=== PATIENT | female | born 1985 | race Caucasian/White ===

== ENCOUNTER 2017-08-18 14:00 | Emergency (ER) | payer SELFPAY ==
--- NOTE | 2017-08-18 14:35 | ED Physician Chart ---
ED Chief Complaint/HPI - Patient Information Date Seen:: 08/18/17 Time Seen:: 14:20 Chief Complaint:: cough, fever, vomiting History of Present Illness:: Patient developed cough, subjective fever and vomiting 5 days ago. No diarrhea. Daughter is similarly affected. Patient did not receive any influenza vaccination this season. Allergies:: Allergies Allergy/AdvReac Type Severity Reaction Status Date / Time No Known Allergies Allergy Verified 08/18/17 14:24 Vitals:: Vital Signs - 8 hr 08/18/17 14:24 HR 99 BP 122/74 O2 Sat % 97 Historian:: Patient Review:: Nurse's Note Reviewed ED Review of Systems - Review of Systems General/Constitutional: Fever Skin: No skin lesions Head: No headache Eyes: No loss of vision ENT: No earache Neck: No neck pain Cardio Vascular: No chest pain Pulmonary: Cough GI: Nausea, Vomiting, No diarrhea G/U: No dysuria Musculoskeletal: Muscle pain, Other (mild myalgia) Endocrine: No polyuria, No polydipsia Psychiatric: No prior psych history Hematopoietic: No bruising Allergic/Immuno: No urticaria Neurological: No syncope, No focal symptoms ED Past Medical History - Past Medical History Past Medical History: Dyslipidemia, Thyroid disorder, Other (hyperlipidemia; hypothyroidism) Family History: Diabetes Melitus, HTN, Other (hyperlipidemia) Social History: Non Smoker, No Alcohol Surgical History: other (left eyebrow cyst and pilonidal cyst) Psychiatricy History: None Medication: None Family Medical History - Family Member Mother History Unknown: Yes ED Physical Exam - Physical Examination General/Constitutional: Well-developed, well-nourished, Alert, No distress Head: Atraumatic Eyes: Lids, conjuctiva normal, PERRL Skin: Nl inspection, No rash, No skin lesions, No ecchymosis ENMT: External ears, nose nl, TM canals nl, Nasal exam nl, Lips, teeth, gums nl , Oropharynx nl, Tonsils nl Neck: No nuchal rigidity Respiratory: Nl effort/Exclusion, Clear to Auscultation, No Wheeze/Rhonchi/Rales Cardio Vascular: RRR, No murmur, gallop, rubs GI: No tenderness/rebounding/guarding, No organomegaly, No hernia, Normal BS's Extremities: Normal digits & nails Neuro/Psych: No focal deficits Misc: No paraspinal tenderness ED Labs/Radiology/EKG Results - Lab Results Results: Laboratory Results - last 24 hr 08/18/17 15:05 Influenza A (Rapid) NEG FOR INF A Influenza B (Rapid) POS FOR INF B H ED Septic Shock - . Is Septic Shock (SBP<90, OR Lactate>4 mmol\L) present?: No - <6hrs of presentation: Vital Signs: Vital Signs - 8 hr 08/18/17 14:24 HR 99 BP 122/74 O2 Sat % 97 ED Reassessment (Disposition) - Reassessment Reassessment Condition:: Unchanged - Diagnosis Diagnosis:: Influenza B - Aftercare/Follow up Instructions Aftercare/Follow-Up Instructions:: Refer to Discharge Instructions - Patient Disposition Discharge/Transfer:: Home Condition at Disposition:: Stable, Unchanged
[2017-08-18 16:45] LABS: INF A SCREEN NEG FOR INF A; INF B SCREEN POS FOR INF B
== END 2017-08-18 17:45 ==
LOC: ER 14:00
DX: J11.1 Influenza due to unidentified influenza virus with other respiratory manifestations (principal); E78.5 Hyperlipidemia, unspecified; E03.9 Hypothyroidism, unspecified
CPT/HCPCS: 87804-TC; Z7502

== ENCOUNTER 2017-08-24 16:33 | Inpatient (IN) | payer SELFPAY ==
--- NOTE | 2017-08-24 17:18 | ED Physician Chart ---
ED Chief Complaint/HPI - Patient Information Date Seen:: 08/24/17 Time Seen:: 16:50 Chief Complaint:: Fever History of Present Illness:: onset x 2 days of cough, congestion, pleuritic right rib/chest pains, and fever ; pt denies trauma, H/As, E/As, S/T, neck pain, exertional C/P, SOB, Abd. 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 Allergies:: Allergies Allergy/AdvReac Type Severity Reaction Status Date / Time No Known Allergies Allergy Verified 08/18/17 14:24 Vitals:: Vital Signs - 8 hr 08/24/17 16:52 Temp 99.7 F HR 127 RR 16 BP 150/93 O2 Sat % 95 Historian:: Patient Review:: Nurse's Note Reviewed <Kevin Watson - Last Filed: 08/24/17 17:33> - Patient Information Allergies:: Allergies Allergy/AdvReac Type Severity Reaction Status Date / Time No Known Allergies Allergy Verified 08/18/17 14:24 Vitals:: Vital Signs - 8 hr 08/24/17 16:52 Temp 99.7 F HR 127 RR 16 BP 150/93 O2 Sat % 95 <Serina Adams - Last Filed: 08/24/17 23:41> ED Review of Systems - Review of Systems General/Constitutional: Fever, No chills, No weight loss, No weakness, No diaphoresis, No edema, No loss of appetite Skin: No skin lesions, No rash, No bruising Head: No headache, No light-headedness Eyes: No loss of vision, No pain, No diplopia ENT: No earache, Nasal drainage, No sore throat, No tinnitus Neck: No neck pain, No swelling, No thyromegaly, No stiffness, No mass noted Cardio Vascular: No chest pain, No palpitations, No PND, No orthopnea, No edema Pulmonary: No SOB, Cough, No sputum, No wheezing GI: No nausea, No vomiting, No diarrhea, No pain, No melena, No hematochezia, No constipation, No hematemesis G/U: No dysuria, No frequency, No hematuria, No nacturia Pricing Coordinator: No vaginal discharge, No abnormal vaginal bleed, No contraction Musculoskeletal: No bone or joint pain, No back pain, No muscle pain Endocrine: No polyuria, No polydipsia Psychiatric: No prior psych history, No depression, No anxiety, No suicidal ideation, No homicidal ideation, No auditory hallucination, No visual hallucination Hematopoietic: No bruising, No lymphadenopathy Allergic/Immuno: No urticaria, No angioedema Neurological: No syncope, No focal symptoms, No weakness, No paresthesia, No headache, No seizure, No dizziness, No confusion, No vertigo <Kevin Watson - Last Filed: 08/24/17 17:33> ED Past Medical History - Past Medical History Obtainable: Yes Past Medical History: Thyroid disorder Family History: Diabetes Melitus, HTN Social History: Non Smoker, Alcohol, No Drug Use, Single Surgical History: None Psychiatricy History: None Medication: Reviewed <Kevin Watson Bunny Filed: 08/24/17 17:33> Family Medical History - Family Member Mother History Unknown: Yes <Kevin Watson Filed: 08/24/17 17:33> ED Physical Exam - Physical Examination General/Constitutional: Awake, Well-developed, well-nourished, Alert, No distress, GCS 15, Non-toxic appearing, Ambulatory Head: Atraumatic Eyes: Lids, conjuctiva normal, PERRL, EOMI Skin: Nl inspection, No rash, No skin lesions, No ecchymosis, Well hydrated, No lymphadenopathy ENMT: External ears, nose nl, TM canals nl, Nasal exam nl, Lips, teeth, gums nl , Oropharynx nl, Tonsils nl Neck: Nontender, Full ROM w/o pain, No JVD, No nuchal rigidity, No bruit, No mass, No stridor Respiratory: Nl effort/Exclusion, Clear to Auscultation, No Wheeze/Rhonchi/Rales Cardio Vascular: RRR, No murmur, gallop, rubs, NL S1 S2, Carotid/Femoral/Distal pulses equal bilaterally GI: No tenderness/rebounding/guarding, No organomegaly, No hernia, Normal BS's, Nondistended, No mass/bruits, No McBurney tenderness : No CVA tenderness Extremities: No tenderness or effusion, Full ROM, normal strength in all extremities, No edema, Normal digits & nails Neuro/Psych: Alert/oriented, DTR's symmetric, Normal sensory exam, Normal motor strength, Judgement/insight normal, Mood normal, Normal gait, No focal deficits Misc: Normal back, No paraspinal tenderness <Kevin Watson - Last Filed: 08/24/17 17:33> - Physical Examination Other GI comments:: RUQ tenderness <Serina Adams - Last Filed: 08/24/17 23:41> ED Labs/Radiology/EKG Results - EKG Interpretations EKG Time:: 17:28 Rate & Rhythm: 126; ST Comments:: non-specific st-t changes <[email or web address] - Last Filed: 08/24/17 17:33> - Lab Results Results: Laboratory Tests 08/24/17 08/24/17 08/24/17 17:25 17:34 17:34 WBC 22.7 H* RBC 4.33 Hgb 13.7 Hct 39.9 L MCV 92.2 MCH 31.6 H MCHC Differential 34.3 RDW 12.7 Plt Count 262 MPV 8.4 Band Neutrophils % 6 Neutrophils (Manual) 83 H Lymphocytes 6 L Monocytes 4 Eosinophils 1 Platelet Estimate ADEQUATE Platelet Morphology NORMAL RBC Morph Micro Appear NORMAL PT 9.7 INR 0.93 PTT (Actin FS) 25.9 L Sodium Potassium Chloride Carbon Dioxide Anion Gap BUN Creatinine Est GFR ( Amer) Est GFR (Non-Af Amer) BUN/Creatinine Ratio Glucose Whole Bld Lactic Acid Calcium Total Bilirubin AST ALT Alkaline Phosphatase Creatine Kinase Troponin I Total Protein Albumin Globulin Albumin/Globulin Ratio Amylase Lipase Serum , Qual Urine Source Urine Color Urine Clarity Urine pH Ur Specific [place] Urine Protein Urine Glucose (UA) Urine Ketones Urine Blood Urine Nitrate Urine Bilirubin Urine Urobilinogen Ur Leukocyte Esterase Urine RBC Urine WBC Ur Epithelial Cells Urine Bacteria Urine Test POC Ur Test Negative 08/24/17 08/24/17 08/24/17 17:34 17:34 17:34 WBC RBC Hgb Hct MCV MCH MCHC Differential RDW Plt Count MPV Band Neutrophils % Neutrophils (Manual) Lymphocytes Monocytes Eosinophils Platelet Estimate Platelet Morphology RBC Morph Micro Appear PT INR PTT (Actin FS) Sodium 132 L Potassium 3.4 L Chloride 101 Carbon Dioxide 23.0 Anion Gap 11.4 BUN 6 L Creatinine 0.8 Est GFR ( Amer) > 60.0 Est GFR (Non-Af Amer) > 60.0 BUN/Creatinine Ratio 7.5 Glucose 239 H Whole Bld Lactic Acid 1.24 Calcium 8.8 Total Bilirubin 0.5 AST 42 H ALT 44 Alkaline Phosphatase 134 H Creatine Kinase 52 Troponin I 0.01 Total Protein 7.7 Albumin 3.6 L Globulin 4.1 Albumin/Globulin Ratio 0.9 L Amylase Lipase Serum , Qual Urine Source Urine Color Urine Clarity Urine pH Ur Specific [place] Urine Protein Urine Glucose (UA) Urine Ketones Urine Blood Urine Nitrate Urine Bilirubin Urine Urobilinogen Ur Leukocyte Esterase Urine RBC Urine WBC Ur Epithelial Cells Urine Bacteria Urine Test NEGATIVE POC Ur Test 08/24/17 08/24/17 08/24/17 17:34 17:34 17:55 WBC RBC Hgb Hct MCV MCH MCHC Differential RDW Plt Count MPV Band Neutrophils % Neutrophils (Manual) Lymphocytes Monocytes Eosinophils Platelet Estimate Platelet Morphology RBC Morph Micro Appear PT INR PTT (Actin FS) Sodium Potassium Chloride Carbon Dioxide Anion Gap BUN Creatinine Est GFR ( Amer) Est GFR (Non-Af Amer) BUN/Creatinine Ratio Glucose Whole Bld Lactic Acid Calcium Total Bilirubin AST ALT Alkaline Phosphatase Creatine Kinase Troponin I Total Protein Albumin Globulin Albumin/Globulin Ratio Amylase 13 L Lipase 12 Serum , Qual NEGATIVE Urine Source [place] Urine Color YELLOW Urine Clarity CLEAR Urine pH 7.5 Ur Specific [place] 1.015 Urine Protein NEGATIVE Urine Glucose (UA) >=1000 H Urine Ketones NEGATIVE Urine Blood TRACE Urine Nitrate NEGATIVE Urine Bilirubin NEGATIVE Urine Urobilinogen 4.0 H Ur Leukocyte Esterase NEGATIVE Urine RBC 0-2 Urine WBC NONE SEEN Ur Epithelial Cells NONE SEEN Urine Bacteria NONE SEEN Urine Test POC Ur Test - Radiology Results Results: CT chest: right middle lobe pneumonia Abdominal u/s: Hepatomegaly <Serina Adams - Last Filed: 08/24/17 23:41> ED Assessment - Assessment General Assessment: Right middle lobe pneumonia Leukocytosis Hepatomegaly <Serina Adams - Last Filed: 08/24/17 23:41> ED Septic Shock - . Is Septic Shock (SBP<90, OR Lactate>4 mmol\L) present?: No - <6hrs of presentation: Vital Signs: Vital Signs - 8 hr 08/24/17 16:52 Temp 99.7 F HR 127 RR 16 BP 150/93 O2 Sat % 95 <Kevin Watson - Last Filed: 08/24/17 17:33> - . Is Septic Shock (SBP<90, OR Lactate>4 mmol\L) present?: No - <6hrs of presentation: Vital Signs: Vital Signs - 8 hr 08/24/17 16:52 Temp 99.7 F HR 127 RR 16 BP 150/93 O2 Sat % 95 <Serina Adams - Last Filed: 08/24/17 23:41> ED Reassessment (Disposition) - Reassessment Reassessment Condition:: Improved - Patient Disposition Discharge/Transfer:: Acute Care w/in this hosp Admitting Medical Physician:: Cesar Guerra <Serina Adams - Last Filed: 08/24/17 23:41>
[2017-08-24] MEDS ORDERED: Sodium Chloride 0.9% 1,000 ML IV ONE (17:20)
[2017-08-24] MEDS ORDERED: cefTRIAXone 1 GM in Sodium Chloride 0.9% 50 ML IV ONE (17:21)
[2017-08-24 17:57] LABS: EOSINOPHILE ABSOLUTE 0.1 Th/cmm (0.1-0.4); HEMATOCRIT 39.9 % (41.0-60); HEMOGLOBIN 13.7 gm/dL (12-16); LYMPHOCYTE ABSOLUTE 1.4 Th/cmm (1.5-3.0); MANUAL DIFF REQUIRED? YES; MEAN CELL VOLUME 92.2 fl (81-100); MEAN CORPUSCULAR HEMOGLOBIN 31.6 pg (27.0-31.0); MEAN CORPUSCULAR HGB CONC 34.3 pg (28.0-36.0); MEAN PLATELET VOLUME 8.4 fl; MONOCYTE ABSOLUTE 1.1 Th/cmm (0.3-1.0); NEUTROPHILE ABSOLUTE 20.1 Th/cmm (1.8-8.0); PLATELET COUNT 262 Th/cmm (150-400); RED BLOOD COUNT 4.33 Mil/cmm (3.80-5.10); RED CELL DISTRIBUTION WIDTH 12.7 % (11.5-20.0)
[2017-08-24 18:00] LABS: URINE MICROSCOPIC INDICATED? YES; URINE SOURCE MIDSTREAM
[2017-08-24 18:02] LABS: URINE BILIRUBIN NEGATIVE (NEGATIVE); URINE BLOOD TRACE (NEGATIVE); URINE GLUCOSE (UA) >=1000 mg/dL (NEGATIVE); URINE KETONE NEGATIVE (NEGATIVE); URINE LEUKOCYTE ESTERASE NEGATIVE (NEGATIVE); URINE NITRATE NEGATIVE (NEGATIVE); URINE PH 7.5 (4.6 - 8.0); URINE PROTEIN NEGATIVE (NEGATIVE)
[2017-08-24 18:07] LABS: INR 0.93 (0.5-1.4); PROTHROMBIN TIME (TEST) 9.7 SECONDS (9.5-11.5)
[2017-08-24 18:13] LABS: TROP I 0.01 ng/mL (0.01-0.05)
[2017-08-24 18:21] LABS: WHITE BLOOD COUNT 22.7 Th/cmm (4.8-10.8)
[2017-08-24] MEDS ORDERED: Morphine Sulfate 2 mg/mL 1mL Syr IV STA (18:23)
[2017-08-24] MEDS ORDERED: Azithromycin 500 MG in Sodium Chloride 0.9% 250 ML IV ONE (18:25)
[2017-08-24 18:29] LABS: URINE BACTERIA NONE SEEN /hpf (NONE SEEN); URINE CLARITY CLEAR (CLEAR); URINE COLOR YELLOW; URINE EPITHELIAL CELLS NONE SEEN /lpf (FEW); URINE RBC 0-2 /hpf (0-5); URINE WBC NONE SEEN /hpf (0-5)
[2017-08-24 18:30] LABS: ALB/GLOB RATIO 0.9 (1.0-1.8); ALBUMIN 3.6 gm/dL (3.7-5.3); ALKALINE PHOSPHATASE 134 U/L (34-104); ANION GAP 11.4 (7.0-16.0); BILIRUBIN,TOTAL 0.5 mg/dL (0.3-1.0); BUN - UREA NITROGEN 6 mg/dL (7-25); CALCIUM SERUM 8.8 mg/dL (8.6-10.3); CHLORIDE 101 mEq/L (98-107); CREATININE - SERUM 0.8 mg/dL (0.6-1.2); CREATININE KINASE 52 U/L (30-223); GFR AFRICAN-AMERICAN > 60.0 ml/min (>90); GFR NON AFRICAN-AMERICAN > 60.0 ml/min; GLUCOSE 239 mg/dL (70-105); POTASSIUM SERUM 3.4 mEq/L (3.5-5.1); SGOT 42 U/L (13-39); SGPT/ALT 44 U/L (7-52); SODIUM SERUM 132 mEq/L (136-145); TOTAL PROTEIN,SERUM 7.7 gm/dL (6.0-8.3)
[2017-08-24] MEDS ORDERED: Morphine Sulfate 2 mg/mL 1mL Syr ONE (18:32)
[2017-08-24 19:36] LABS: BAND NEUTROPHILE 6 % (0-10); EOSINOPHIL 1 % (0-5); LYMPHOCYTE 6 % (20-50); MONOCYTE 4 % (2-10); TOTAL CELLS COUNTED 100
[2017-08-24 19:37] LABS: NEUTROPHILS 83 % (40-80); PLATELET ESTIMATE ADEQUATE (NORMAL); PLATELET MORPHOLOGY NORMAL (NORMAL)
[2017-08-24 21:22] LABS: AMYLASE SERUM 13 U/L (29-103); LIPASE 12 U/L (11-82)
[2017-08-24] MEDS ORDERED: Potassium Chloride 20 mEq ER Tab PO ONE ×2 (23:38→23:39)
[2017-08-25] MEDS ORDERED: Albuterol/Ipratropium Neb 3 ML AERS HHN PRN (00:20)
[2017-08-25] MEDS: Sodium Chloride 0.9% 1,000 ML IV SCH ×2 (00:52→10:32)
[2017-08-25 01:29] VITALS: BP 119/71
--- NOTE | 2017-08-25 09:02 | Diagnostic Imaging Report ---
CHEST X-RAY: AP view INDICATION: Chest pain COMPARISON: None FINDINGS: Faint right basal densities noted. No evidence of an effusion. Heart size normal. Degenerative changes of the spine are noted. IMPRESSION: Faint right basal density which represent faint infiltrate. Please refer to follow-up CT chest for further details.
--- NOTE | 2017-08-25 09:08 | Diagnostic Imaging Report ---
Ultrasound abdomen HISTORY: Right upper quadrant pain COMPARISON: CT chest performed the same day Technique: Sonography of the abdomen was performed in multiple planes. FINDINGS: Exam is markedly limited due to body habitus and bowel gas. The liver demonstrates increased echogenicity. The liver margins are not well-defined limiting assessment for focal lesions. The liver measures 19.6 cm. Limited assessment of the gallstones demonstrates no obvious gallstones or gallbladder wall thickening. The common bile duct measures 3 mm. Assessment of pancreas is limited due to bowel gas. The pancreas appears mildly heterogeneous. Limited assessment of the kidneys demonstrates no obvious hydronephrosis. Assessment for focal renal lesions is limited on this exam. The spleen measures 11.1 cm. IMPRESSION: Limited exam due to body habitus and bowel gas. No evidence of gallstones. Prominent liver with increased echogenicity likely due to fatty infiltration Suboptimal assessment of the pancreas. The Pancreas appears mildly heterogeneous. Inflammatory process cannot be excluded. Note, the pancreas is partially visualized on recent chest CT exam and appears grossly unremarkable. If indicated short-term follow-up CT abdomen and pelvis examination may be obtained.
--- NOTE | 2017-08-25 09:13 | Diagnostic Imaging Report ---
CT Chest without IV contrast HISTORY: Right chest pain COMPARISON: Chest x-ray on 08/24/2018. Technique: Axial images were obtained from the base of the neck to the upper abdomen without IV contrast. Reconstructions were made. Total DLP 321 CTD I 10.5 Findings: Assessment of mediastinum is limited due to lack of IV contrast. A few nonenlarged mediastinal lymph nodes are noted. No evidence of an aortic aneurysm. No pericardial effusion. The heart size is normal. There is elevation of the right hemidiaphragm. Atelectatic lung changes and atelectatic changes seen with patchy infiltrates primarily on the right side and right anterior/basal consolidative changes along the middle lobe with air bronchograms. A few nodular infiltrates are seen measuring up to 8 mm. Trace right sided pleural fluid is noted. The upper abdomen demonstrates prominent fatty liver. The osseous structures demonstrate no acute abnormalities. Degenerative changes of the spine are noted. IMPRESSION: Bilateral infiltrates primarily on the right side with consolidative changes involving the right lung base along the right middle lobe/right heart border with air bronchograms. Findings are most suggestive pneumonia. Clinical correlation and follow-up is recommended. Trace bilateral effusions Few nodular infiltrates the right lung measuring up to 8 mm. Findings are nonspecific and may be due to infectious or inflammatory process. Neoplastic process is less likely. Short-term follow-up CT examination after resolution of acute symptoms is recommended to ensure resolution. Prominent liver with fatty infiltration.
[2017-08-25] MEDS ORDERED: Influenza Vaccine 0.5 mL Syr IM ONE (10:00)
[2017-08-25] MEDS: guaiFENesin 200 MG/10 ML UDC PO SCH ×3 (10:29→21:19)
--- NOTE | 2017-08-25 12:14 | History & Physical ---
ADMIT DATE: 08/25/2017 REASON FOR ADMISSION: Right lower lobe and middle lobe pneumonia. HISTORY OF PRESENTING ILLNESS: A 32-year-old female had fluid type of symptom 1 week ago and past 2-3 days she is having pleuritic chest pain in the right mid chest area underneath the nipple area and also started having fever with chills and not feeling well, got short of breath, severe pleuritic pain with each time she coughs, very little phlegm coming out at present time came to the Emergency Room. Chest x-ray was equivocal, so CT chest done which revealed right middle lobe and right lower lobe lobar pneumonia with WBC count more than 22,000 with left shift. The patient got admitted since admission, the symptomatology of pleuritic chest pain still persist. Remained afebrile, no sweating at present time, cough is still there and pleurisy type of pain with each cough is present in the right mid chest area. The patient denies vomiting, appetite is poor. No abdominal pain, no UTI symptomatology. No leg swelling or joint swelling. No numbness, weakness. PAST MEDICAL HISTORY: None. MEDICATIONS AT HOME: None. [id number] MEDICATIONS: NyQuil. ALLERGIES: None. SOCIAL HISTORY: No smoking, alcohol, or substance abuse. FAMILY HISTORY: Noncontributory. REVIEW OF SYSTEMS: See the history of presenting illness. Denies any sore throat or vision problem, still having nose congestion. PHYSICAL EXAMINATION: VITAL SIGNS: Height is 1.52 meter, weight is 79 kg, BMI 34.2, temperature 98.1, pulse 95. Respiratory rate 17, blood pressure 124/85, oxygen saturation 2 liters nasal cannula, 95%. HEENT: Nose congested. NECK: Short and thick. LUNGS: Clear but decreased air entry in the right base. No rales, rhonchi. CARDIOVASCULAR: S1, S2 normal limit. ABDOMEN: Obese, otherwise benign. EXTREMITIES: No leg edema. Dorsalis pedis palpable. LABORATORY TESTS: WBC is 22.7, hemoglobin 13.7, MCV 92, and platelet count of 262,000, neutrophil 83. Protime 9.7, PTT 25. Sodium 132, potassium 3.4, chloride 101, bicarbonate 23, BUN 6, creatinine 0.8, glucose of 239, calcium 8.8. SGOT 42, SGPT 44, alkaline phosphatase 134, CPK 52. Troponin negative. Albumin 3.6, amylase 13 and lipase 12. Serum negative. Urinalysis, pH 7.5, specific gravity 1015, glucose, 4+ ketones negative, wbc's none. Chest x-rays significant for right base haziness. CT chest reveal lobar pneumonia, right, middle and right lower lobe. Ultrasound abdomen, fatty liver. No gallstone. ASSESSMENT AND PLAN: 1. Right middle and lower lobe pneumonia. 2. Status post viral upper respiratory tract infection. 3. Rhinitis. 4. 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 5. Local psychosis severe with left shift due to right middle and lower lobe pneumonia. 6. Hyperglycemia with hypercalcemia. In this regard that the patient having urine glucose 4+, this is to rule out diabetes mellitus. We will check a hemoglobin A1c. 7. Hypokalemia. We will the do the potassium supplement and go from there. The patient will be empirically given IV Rocephin and Zithromax. CBC will be followed. BMP also followed with hemoglobin A1c, TSH will be done. 8. Fatty liver. Advised the patient to eat low fat diet and follow up with primary care physician and monitor the liver panel and glucose grossly. Pleuritic chest pain will be controlled with [place] and Robitussin expectorant and handheld nebulizer & Tylenol p.r.n. for fever. JOB# [id number] PADMINI
[2017-08-25 13:35] LABS: A1C % 9.4 % (4.0-6.0)
[2017-08-25] MEDS: Potassium Chloride 10 mEq ER Tab PO SCH (15:15)
[2017-08-25] MEDS: Hydrocodone/APAP 5mg/325mg Tab PO PRN (15:20)
[2017-08-25] MEDS: cefTRIAXone 1 GM in Sodium Chloride 0.9% 50 ML IV SCH (21:13)
[2017-08-25] MEDS: Azithromycin 500 MG in Sodium Chloride 0.9% 250 ML IV SCH (22:58)
[2017-08-26] MEDS: Sodium Chloride 0.9% 1,000 ML IV SCH ×2 (04:48→16:21)
[2017-08-26 05:27] LABS: % BASOPHILS 0.5 % (0.0-2.0); % EOSINOPHILS 1.9 % (0.0-5.0); % LYMPHOCYTES 15.8 % (20.0-50.0); % MONOCYTES 7.8 % (2.0-10.0); BASOPHILE ABSOLUTE 0.1 Th/cumm (0-0.2); EOSINOPHILE ABSOLUTE 0.2 Th/cmm (0.1-0.4); HEMOGLOBIN 12.7 gm/dL (12-16); LYMPHOCYTE ABSOLUTE 2.1 Th/cmm (1.5-3.0); MEAN CORPUSCULAR HEMOGLOBIN 31.2 pg (27.0-31.0); MEAN CORPUSCULAR HGB CONC 33.6 pg (28.0-36.0); MEAN PLATELET VOLUME 8.5 fl; NEUTROPHILE ABSOLUTE 9.7 Th/cmm (1.8-8.0); RED BLOOD COUNT 4.08 Mil/cmm (3.80-5.10); RED CELL DISTRIBUTION WIDTH 12.8 % (11.5-20.0)
[2017-08-26 05:31] LABS: PLATELET COUNT 329 Th/cmm (150-400); WHITE BLOOD COUNT 13.1 Th/cmm (4.8-10.8)
[2017-08-26 06:27] LABS: ALB/GLOB RATIO 0.8 (1.0-1.8); ALBUMIN 3.2 gm/dL (3.7-5.3); ALKALINE PHOSPHATASE 115 U/L (34-104); ANION GAP 10.5 (7.0-16.0); BILIRUBIN,TOTAL 0.3 mg/dL (0.3-1.0); BUN - UREA NITROGEN 6 mg/dL (7-25); CALCIUM SERUM 8.5 mg/dL (8.6-10.3); CARBON DIOXIDE 24.2 mEq/L (21.0-31.0); CHLORIDE 102 mEq/L (98-107); CHOLESTEROL 112 mg/dL (<200); CREATININE - SERUM 0.5 mg/dL (0.6-1.2); GFR AFRICAN-AMERICAN > 60.0 ml/min (>90); GFR NON AFRICAN-AMERICAN > 60.0 ml/min; GLUCOSE 208 mg/dL (70-105); HDL -HIGH DENSITY LIPOPROTEIN 25 mg/dL (23-92); POTASSIUM SERUM 3.7 mEq/L (3.5-5.1); SGOT 16 U/L (13-39); SGPT/ALT 34 U/L (7-52); SODIUM SERUM 133 mEq/L (136-145); TOTAL PROTEIN,SERUM 7.3 gm/dL (6.0-8.3); TRIGLYCERIDES 181 mg/dL (<150)
--- NOTE | 2017-08-26 08:00 | Diagnostic Imaging Report ---
CHEST X-RAY: AP view INDICATION: Pneumonia COMPARISON: 08/24/2017 FINDINGS: Suboptimal lung volumes are seen with right basal infiltrates and small right effusion. Minimal congestive changes are noted. Heart size is borderline prominent. IMPRESSION: Minimal congestive changes with small right effusion and right basal infiltrates.
[2017-08-26] MEDS: guaiFENesin 200 MG/10 ML UDC PO SCH ×3 (09:11→20:59)
[2017-08-26] MEDS: Potassium Chloride 10 mEq ER Tab PO SCH (09:12)
[2017-08-26 11:26] LABS: ALLEN TEST YES; pH 7.42 (7.35-7.45)
[2017-08-26] MEDS: INSULIN ASPART, RECOMBINANT 100 UNITS/ML SUBQ SCH (17:18)
[2017-08-26] MEDS: cefTRIAXone 1 GM in Sodium Chloride 0.9% 50 ML IV SCH (20:54)
[2017-08-26] MEDS: Azithromycin 500 MG in Sodium Chloride 0.9% 250 ML IV SCH (21:36)
[2017-08-27 05:18] LABS: % BASOPHILS 0.8 % (0.0-2.0); % EOSINOPHILS 2.6 % (0.0-5.0); % LYMPHOCYTES 15.6 % (20.0-50.0); % MONOCYTES 7.5 % (2.0-10.0); % NEUTROPHILS 73.5 % (40.0-80.0); BASOPHILE ABSOLUTE 0.1 Th/cumm (0-0.2); EOSINOPHILE ABSOLUTE 0.3 Th/cmm (0.1-0.4); HEMATOCRIT 40.1 % (41.0-60); HEMOGLOBIN 13.5 gm/dL (12-16); LYMPHOCYTE ABSOLUTE 1.9 Th/cmm (1.5-3.0); MEAN CELL VOLUME 92.7 fl (81-100); MEAN CORPUSCULAR HEMOGLOBIN 31.3 pg (27.0-31.0); MEAN CORPUSCULAR HGB CONC 33.7 pg (28.0-36.0); MEAN PLATELET VOLUME 8.2 fl; MONOCYTE ABSOLUTE 0.9 Th/cmm (0.3-1.0); NEUTROPHILE ABSOLUTE 9.1 Th/cmm (1.8-8.0); PLATELET COUNT 383 Th/cmm (150-400); RED BLOOD COUNT 4.32 Mil/cmm (3.80-5.10); RED CELL DISTRIBUTION WIDTH 12.7 % (11.5-20.0)
[2017-08-27 05:20] LABS: WHITE BLOOD COUNT 12.3 Th/cmm (4.8-10.8)
[2017-08-27 05:37] LABS: ALB/GLOB RATIO 0.8 (1.0-1.8); ALBUMIN 3.3 gm/dL (3.7-5.3); ALKALINE PHOSPHATASE 118 U/L (34-104); ANION GAP 11.7 (7.0-16.0); BILIRUBIN,TOTAL 0.4 mg/dL (0.3-1.0); BUN - UREA NITROGEN 5 mg/dL (7-25); CALCIUM SERUM 8.9 mg/dL (8.6-10.3); CARBON DIOXIDE 23.7 mEq/L (21.0-31.0); CHLORIDE 102 mEq/L (98-107); CREATININE - SERUM 0.6 mg/dL (0.6-1.2); GFR AFRICAN-AMERICAN > 60.0 ml/min (>90); GFR NON AFRICAN-AMERICAN > 60.0 ml/min; GLUCOSE 172 mg/dL (70-105); POTASSIUM SERUM 3.4 mEq/L (3.5-5.1); SGOT 19 U/L (13-39); SGPT/ALT 29 U/L (7-52); SODIUM SERUM 134 mEq/L (136-145); TOTAL PROTEIN,SERUM 7.7 gm/dL (6.0-8.3)
[2017-08-27] MEDS: INSULIN ASPART, RECOMBINANT 100 UNITS/ML SUBQ SCH ×3 (06:39→17:46)
[2017-08-27] MEDS: guaiFENesin 200 MG/10 ML UDC PO SCH ×3 (08:40→21:15)
[2017-08-27] MEDS: Potassium Chloride 10 mEq ER Tab PO SCH ×2 (08:41→17:59)
[2017-08-27] MEDS ORDERED: ACYCLOVIR 5% TP SCH (13:00)
[2017-08-27] MEDS: Hydrocodone/APAP 5mg/325mg Tab PO PRN (18:00)
[2017-08-27] MEDS: cefTRIAXone 1 GM in Sodium Chloride 0.9% 50 ML IV SCH (21:10)
[2017-08-27] MEDS: Azithromycin 500 MG in Sodium Chloride 0.9% 250 ML IV SCH (22:16)
[2017-08-27] MEDS: Sodium Chloride 0.9% 1,000 ML IV SCH (23:34)
[2017-08-28] MEDS: Hydrocodone/APAP 5mg/325mg Tab PO PRN (06:06)
[2017-08-28 06:10] LABS: % BASOPHILS 0.5 % (0.0-2.0); % EOSINOPHILS 3.2 % (0.0-5.0); % LYMPHOCYTES 20.3 % (20.0-50.0); % MONOCYTES 9.4 % (2.0-10.0); % NEUTROPHILS 66.6 % (40.0-80.0); EOSINOPHILE ABSOLUTE 0.3 Th/cmm (0.1-0.4); HEMATOCRIT 39.5 % (41.0-60); HEMOGLOBIN 13.2 gm/dL (12-16); LYMPHOCYTE ABSOLUTE 1.9 Th/cmm (1.5-3.0); MEAN CELL VOLUME 92.8 fl (81-100); MEAN CORPUSCULAR HGB CONC 33.4 pg (28.0-36.0); MONOCYTE ABSOLUTE 0.9 Th/cmm (0.3-1.0); NEUTROPHILE ABSOLUTE 6.4 Th/cmm (1.8-8.0); PLATELET COUNT 432 Th/cmm (150-400); RED BLOOD COUNT 4.26 Mil/cmm (3.80-5.10); RED CELL DISTRIBUTION WIDTH 12.5 % (11.5-20.0); WHITE BLOOD COUNT 9.5 Th/cmm (4.8-10.8)
[2017-08-28 06:14] LABS: ALB/GLOB RATIO 0.7 (1.0-1.8); ALBUMIN 3.2 gm/dL (3.7-5.3); ALKALINE PHOSPHATASE 105 U/L (34-104); ANION GAP 11.3 (7.0-16.0); BILIRUBIN,TOTAL 0.3 mg/dL (0.3-1.0); BUN - UREA NITROGEN 7 mg/dL (7-25); CALCIUM SERUM 8.8 mg/dL (8.6-10.3); CARBON DIOXIDE 24.2 mEq/L (21.0-31.0); CHLORIDE 101 mEq/L (98-107); CREATININE - SERUM 0.6 mg/dL (0.6-1.2); GFR AFRICAN-AMERICAN > 60.0 ml/min (>90); GFR NON AFRICAN-AMERICAN > 60.0 ml/min; GLUCOSE 161 mg/dL (70-105); POTASSIUM SERUM 3.5 mEq/L (3.5-5.1); SGOT 46 U/L (13-39); SGPT/ALT 40 U/L (7-52); SODIUM SERUM 133 mEq/L (136-145); TOTAL PROTEIN,SERUM 7.6 gm/dL (6.0-8.3)
[2017-08-28] MEDS: INSULIN ASPART, RECOMBINANT 100 UNITS/ML SUBQ SCH ×2 (06:49→13:46)
[2017-08-28] MEDS: guaiFENesin 200 MG/10 ML UDC PO SCH (08:48)
[2017-08-28] MEDS: Potassium Chloride 10 mEq ER Tab PO SCH (08:49)
[2017-08-28 08:58] LABS: ALLEN TEST Positive; pH 7.41 (7.35-7.45)
--- NOTE | 2017-08-28 09:25 | Diagnostic Imaging Report ---
Chest x-ray (2 views) HISTORY: Pneumonia Compared with the prior exam of August 26, 2017, density is noted in the right lower hemithorax suggesting a minimal effusion. Suggestion of faint infiltrate. Pneumonia cannot be excluded. Heart size difficult to assess with portable technique in a very poor inspiration. IMPRESSION: 1. Slight density within the right lower hemithorax. A minimal effusion faint infiltrate cannot be excluded. Pneumonia cannot be ruled out. Clinical correlation is needed.
--- NOTE | 2017-08-28 09:49 | Diagnostic Imaging Report ---
CT scan of the chest without intravenous contrast HISTORY: Persistent cough, shortness of breath Total DLP equals 704 CTDI equals 20.0 Axial sections were obtained from a level above the clavicles down to level below the diaphragm. The exam is compared with a prior examination of August 24, 2017. Compared with the prior exam, there is persistent abnormal pulmonary parenchymal density consistent with consolidation and/or atelectasis within the right middle lobe and lingula region of the left lung. New parenchymal changes consistent with consolidation and/or atelectasis noted in the right and left lower lobes. Minimal right pleural effusion noted. IMPRESSION: 1. Persistent parenchymal changes consistent with consolidation and/or atelectasis within the right middle lobe and to a lesser degree lingula region of the left lung. New parenchymal changes consistent with consolidation and/or atelectasis noted in the right and left lower lobe regions. 2. New small right pleural effusion
--- NOTE | 2017-08-28 11:45 | Discharge Summary ---
DATE OF DISCHARGE: 08/28/2017 FINAL DIAGNOSES: 1. Multilobar pneumonia including right medial lobe and right lower lobe and left lower lobe pneumonia. 2. Fever blister both lips. 3. Hypoxemia due to acute respiratory failure of #1. 4. Right pleural effusion secondary to #1. 5. Rhinitis. 6. 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 7. New onset of type 2 noninsulin-dependent diabetes mellitus. 8. Hypokalemia. 9. Fatty liver with hepatosplenomegaly due to exogenous obesity. 10. Leukocytosis. 11. Status post acute viral syndrome. HOSPITAL COURSE/IMPORTANT LABS: A 32-year-old female with no history of diabetes, presented to the ER, the patient had 2 or 3 days of pleuritic right-sided chest pain, fever, chills, cough with clear sputum production. The patient had URI symptomatology 1 week ago, which was resolved and above-mentioned pleuritic chest pain started 2 or 3 days prior to admission on 08/24/2017. The patient was found to have multilobar pneumonia with hypoxemia, started on oxygen, handheld nebulizer, IV Rocephin, and Zithromax. Blood culture remained negative. Nares culture negative. Severe leukocytosis on admission with 22,000 WBCs, which decreased to 13,000 and subsequently to 12,000 and on day of discharge on 08/28/2017 9.5, hemoglobin 13.2, MCV 92, platelet 432,000, neutrophils 66, albumin 3.2. Liver panel otherwise unremarkable except mild elevation of AST at 46, normal is up to 39. Though, ALT normal at 40, alkaline phosphatase 105, albumin 3.2. The patient had a CT of the chest done on 08/27/2017, which revealed right middle lobe and right lower lobe pneumonia, left lower lobe pneumonia, right pleural effusion, small. Sodium 133, potassium 3.5, chloride 101, bicarbonate 24, BUN 7, creatinine 0.6, and glucose of 161, calcium 8.8. The patient had room air ABG, which is pH 7.41, pCO2 42, pO2 66, bicarbonate 26, and oxygen saturation 93%. Hemoglobin A1c was elevated at 9.4. TSH normal at 1.1. Serum test is negative. Cholesterol 112, triglyceride 181, HDL decrease at 25, LDL is 69. DISCHARGE MEDICATION: Zithromax 250 mg once a day #6, Levaquin 750 once a day #7, acyclovir 200 mg 5 times a day #20, Phenergan one teaspoon full q.8 p.r.n. for cough, metformin 500 mg twice a day, glipizide 5 mg once a day, thiamine 50 mg once a day, folic acid 1 mg once a day, glucometer test with lancet. Given advice the patient not to drink alcohol. Follow up with primary care physician, Dr. Muñoz in 1 week. If no insurance, go to [facility] for followup as need repeat chest x-ray in 1-2 weeks, go to Emergency Room if fevers, chills, shortness of breath, or pleuritic chest pain worsened. The patient had a dietitian consult and advised the patient to adhere to the diabetic diet. Other important laboratory include abdominal ultrasound, which revealed fatty liver and no gallstone prominently with increase echogenicity due to fatty liver on 08/24/2017. CONDITION ON DISCHARGE: Stable. Overall prognosis depend ongoing improvement of patient's current condition. [facility]# [id number]
== END 2017-08-28 13:00 | disposition home or self-care (01) | DRG 193 ==
LOC: ER 16:33 → MSI 23:30
PROVIDERS: ADMIT Internal Medicine; ATTEND Internal Medicine
DX: J18.1 Lobar pneumonia, unspecified organism (principal); J96.01 Acute respiratory failure with hypoxia; J90 Pleural effusion, not elsewhere classified; E83.52 Hypercalcemia; R16.0 Hepatomegaly, not elsewhere classified; E11.65 Type 2 diabetes mellitus with hyperglycemia; K76.0 Fatty (change of) liver, not elsewhere classified; E66.09 Other obesity due to excess calories; Z68.34 Body mass index [BMI] 34.0-34.9, adult; E87.6 Hypokalemia; J31.0 Chronic rhinitis; J06.9 Acute upper respiratory infection, unspecified; F29 Unspecified psychosis not due to a substance or known physiological condition; S00.521A Blister (nonthermal) of lip, initial encounter
CPT/HCPCS: 36415-UA; 36600-90; 71010-TC; 71020-TC; 71250-TC; 71260-TC; 76705-TC; 80053-TC; 80061-TC; 81001-TC; 81025-TC; 82150-TC; 82550-TC; 82803-TC; 82948-90; 83036-90; 83605; 83690-TC; 84443-TC; 84484-TC; 84703-TC; 85007-TC; 85025-TC; 85027-TC; 85610-TC; 85730-TC; 86803-90; 87340-90; 93005; 94760; J0456; J0696; J1815; J2270; J7030; Z7610